=== PATIENT | female | born 1945 | race Caucasian/White ===

== ENCOUNTER 2017-01-13 20:26 | Emergency (ER) | payer OTHER ==
[~2017-01-13] VITALS: Ht 171.5 cm; Wt 63.1 kg
[~2017-01-13 20:26] MED LIST: ASPI81CH2 PO; CALC600T9 PO; CETI10TA10 PO; FLUT0.15 NAE; GUAI1TAB75 PO; SIMV1POW PO; SNG10 PO
[2017-01-13 20:36] VITALS: Ht 171.5 cm; Wt 63.1 kg
[2017-01-13] MEDS ORDERED: GI COCKTAIL PO STA (20:55)
[2017-01-13] MEDS ORDERED: SUCRALFATE 1 GM TAB PO STA (20:55)
[2017-01-13] MEDS ORDERED: FAMOTIDINE 20 MG TAB PO STA (20:55)
[2017-01-13 21:02] LABS: HEMATOCRIT 41.3 % (37-47); MEAN CELL VOLUME 94.1 fL (80-100); MEAN CORPUSCULAR HGB CONC 35.1 g/dl (32-36); MEAN PLATELET VOLUME 8.8 fL (7.4-10.4); PLATELET COUNT 219 K/uL (130-400); RED BLOOD COUNT 4.39 M/uL (4.2-5.4); WHITE BLOOD COUNT 4.25 K/uL (4.8-10.8)
[2017-01-13 21:14] LABS: INR 0.9 (0.9-1.1); PROTHROMBIN TIME (PATIENT) 10.1 SECONDS (9.0-12.0)
[2017-01-13 21:30] LABS: BUN/CREATININE RATIO 12.8 (10-20); CALCIUM 9.7 mg/dl (8.5-10.1); CREATININE 0.83 mg/dl (0.60-1.20); POTASSIUM 3.2 mmol/L (3.5-5.1)
[2017-01-13 21:35] LABS: ALB/GLOB RATIO 1.4 (0.9-2); CKMB/CK RATIO 2.2 (0-3.0)
--- NOTE | 2017-01-13 21:37 | DIAGNOSTIC IMAGING REPORT ---
CHEST ONE VIEW PORTABLE CLINICAL HISTORY: Chest pain. COMPARISON STUDY: No previous studies for comparison. FINDINGS: Lung volumes are normal. Linear left basilar opacity is suggestive of atelectasis or scarring. The patient is mildly rotated. There is no evidence of pulmonary edema. Cardiac size is normal. Mediastinal contours are normal. IMPRESSION: No acute cardiopulmonary findings. Electronically signed by: Deandre Alvarenga M.D. 01/13/2017 9:36 PM Dictated Date/Time: 01/13/2017 9:35 PM
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
[2017-01-13] MEDS ORDERED: LIDOCAINE HCL 2% VISC SOLN 20 ML UDC ONE (21:39)
[2017-01-13] MEDS ORDERED: ALUMINUM/MAGNESIUM SUSP 30 ML UDC ONE (21:39)
[2017-01-13] MEDS ORDERED: MONT1TAB5 PO (22:05)
[2017-01-13] MEDS ORDERED: SIMV40TA2 PO (22:05)
[2017-01-13] MEDS ORDERED: DIPH25CA65 PO (22:05)
[2017-01-13] MEDS ORDERED: PSEU120T21 PO (22:05)
[2017-01-13 22:52] VITALS: TEMP 36.6
[2017-01-13] MEDS ORDERED: ONDANSETRON INJ 2 MG/ML 2 ML VIAL IV STA (23:18)
[2017-01-13] MEDS ORDERED: MoRPHine SULFATE 4 MG/ML 1 ML CARP\\VIAL IV STA (23:18)
[2017-01-13] MEDS ORDERED: SODIUM CHLORIDE 0.9% 500ML 500 ML IV STA (23:18)
[2017-01-13] MEDS ORDERED: OPTIRAY 320 IV PRN (23:30)
[2017-01-14] MEDS ORDERED: OXYC-57 PO (00:59)
[2017-01-14] MEDS ORDERED: PERCOCET HOME PACK PO ONE (01:00)
[2017-01-14 01:13] VITALS: BP 124/76; PULSE 65; O2SAT 97
--- NOTE | 2017-01-14 09:24 | DIAGNOSTIC IMAGING REPORT ---
Study: CT angiography of the chest TECHNIQUE: Pre and postcontrast transaxial acquisition with multi axial reformatted evaluation. FINDINGS: Minimal atherosclerotic change thoracic aorta. No evidence for true aneurysm or dissection. No significant hilar or mediastinal adenopathy. Minimal bibasilar parenchymal infiltrative change. Mid to upper lungs are clear. Moderate degenerative change thoracic spine. IMPRESSION: 1. Negative study thoracic aorta. 2. Small bibasilar parenchymal infiltrative changes. Electronically signed by: Addy Goldberg M.D. 01/14/2017 6:43 AM Dictated Date/Time: 01/14/2017 6:39 AM
== END 2017-01-14 01:15 | disposition home or self-care (01) ==
LOC: C.EDB 20:27 → C.EDC 22:52
DX: R07.2 Precordial pain (principal); R00.1 Bradycardia, unspecified; Z79.82 Long term (current) use of aspirin; Z79.899 Other long term (current) drug therapy; Z88.0 Allergy status to penicillin

== ENCOUNTER → 2017-02-18 | Outpatient (CLI) | payer OTHER ==
[~2017-02-18] MED LIST changes: +DIPH25CA65 PO; -GUAI1TAB75 PO; +MONT1TAB5 PO; +OXYC-57 PO; +PSEU120T21 PO; -SIMV1POW PO; +SIMV40TA2 PO; -SNG10 PO
--- NOTE | 2017-02-19 13:56 | MAMMOGRAPHY REPORT ---
BILATERAL DIGITAL SCREENING MAMMOGRAM WITH CAD: 02/18/2017 CLINICAL HISTORY: Routine screening. Patient has no complaints. TECHNIQUE: Bilateral CC and MLO views were obtained. Current study was also evaluated with a Comput er Aided Detection (CAD) system. COMPARISON: Comparison is made to exams dated: 02/16/2016 mammogram, 11/01/2014 mammogram, 3 mammogram - [facility], 10/31/2010 mammogram, 10/30/2009 mammogram - [facility], and 07/18/2008. BREAST COMPOSITION: There are scattered areas of fibroglandular density in both breasts. FINDINGS: The parenchymal pattern is unchanged. No developing mass, architectural distortion or clu ster of suspicious microcalcifications is seen in either breast. IMPRESSION: ACR BI-RADS CATEGORY 2: BENIGN There is no mammographic evidence of malignancy. A 1 year screening mammogram is recommended. The p atient will receive written notification of the results. Approximately 10% of breast cancers are not detected with mammography. A negative mammographic repor t should not delay biopsy if a clinically suggestive mass is present. Heidi Escalante M.D. ay/:02/18/2017 16:42:18 Piggyback Clerk: Savannah NORMAN(Colleen)(Garry)(BD), [facility] letter sent: Normal 1/2 BI-RADS Code: ACR BI-RADS Category 2: Benign
== END | disposition home or self-care (01) ==
LOC: C.MAMM 15:15
PROVIDERS: ATTEND Family Medicine
DX: Z12.31 Encounter for screening mammogram for malignant neoplasm of breast (principal)

== ENCOUNTER → 2018-02-17 | Outpatient (CLI) | payer OTHER ==
[~2018-02-17] MED LIST changes: -OXYC-57 PO
[2018-02-17 11:07] LABS: BASO % 1.4 %; BASO ABS # 0.04 K/uL (0-0.2); EOS % 3.6 %; HEMATOCRIT 42.1 % (37-47); HEMOGLOBIN 14.2 g/dL (12.0-16.0); LYMPH % 42.2 %; LYMPH ABS # 1.17 K/uL (1.2-3.4); MEAN CELL VOLUME 97.9 fL (80-100); MEAN CORPUSCULAR HGB CONC 33.7 g/dl (32-36); MEAN PLATELET VOLUME 9.4 fL (7.4-10.4); MONO % 14.4 %; NEUT % 38.4 %; NEUT ABS # 1.06 K/uL (1.4-6.5); PLATELET COUNT 208 K/uL (130-400); RED CELL DISTRIBUTION WIDTH CV 12.7 % (11.5-14.5); WHITE BLOOD COUNT 2.77 K/uL (4.8-10.8)
== END | disposition home or self-care (01) ==
LOC: C.LABBC 08:27
PROVIDERS: ATTEND Family Medicine
DX: E83.119 Hemochromatosis, unspecified (principal); E78.5 Hyperlipidemia, unspecified

== ENCOUNTER → 2018-02-19 | Outpatient (CLI) | payer OTHER ==
--- NOTE | 2018-02-23 08:07 | MAMMOGRAPHY REPORT ---
BILATERAL DIGITAL SCREENING MAMMOGRAM TOMOSYNTHESIS WITH CAD: 02/19/2018 CLINICAL HISTORY: Routine screening. Patient has no complaints. TECHNIQUE: Breast tomosynthesis in addition to standard 2D mammography was performed. Current study was also evaluated with a Computer Aided Detection (CAD) system. COMPARISON: Comparison is made to exams dated: 02/18/2017 mammogram, 02/16/2016 mammogram, 11/01/2014 mammogram - [facility], 10/31/2010 mammogram - [facility], and 07/18/2008. BREAST COMPOSITION: There are scattered areas of fibroglandular density in both breasts. FINDINGS: No suspicious masses, calcifications, or areas of architectural distortion are noted in ei ther breast. There has been no significant interval change compared to prior exams. IMPRESSION: ACR BI-RADS CATEGORY 1: NEGATIVE There is no mammographic evidence of malignancy. A 1 year screening mammogram is recommended. The pa tient will receive written notification of the results. Approximately 10% of breast cancers are not detected with mammography. A negative mammographic report should not delay biopsy if a clinically suggestive mass is present. Hannah Falcon M.D. /:02/19/2018 16:21:07 Country Sales Manager: Johanny NORMAN(Colleen)(M), [facility] letter sent: Normal 1/2 BI-RADS Code: ACR BI-RADS Category 1: Negative
== END | disposition home or self-care (01) ==
LOC: C.MAMM 15:37
PROVIDERS: ATTEND Family Medicine
DX: Z12.31 Encounter for screening mammogram for malignant neoplasm of breast (principal)

== ENCOUNTER → 2018-02-24 | Outpatient (CLI) | payer OTHER ==
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
== END | disposition home or self-care (01) ==
LOC: C.RAD 18:57
PROVIDERS: ATTEND Family Medicine
DX: S80.02XA Contusion of left knee, initial encounter (principal); X58.XXXA Exposure to other specified factors, initial encounter